=== PATIENT | male | born 1995 | race American Indian/Alaskan Native ===

== ENCOUNTER 2020-03-11 18:57 | Emergency (ER) | payer SELFPAY ==
[2020-03-11 19:18] VITALS: BP 136/78; PULSE 82; RESP 14; TEMP 36.9; O2SAT 98; BMI 31.9
[2020-03-11 20:48] VITALS: BP 141/89; PULSE 75; RESP 15; TEMP 36.7; O2SAT 97
[2020-03-11 21:47] LABS: Basophils % 0.5 %; Eosinophils # 0.2 10^3/uL (0.0-0.8); Eosinophils % 2.7 %; Hemoglobin 15.6 g/dL (11.7-16.6); Lymphocytes # 2.8 10^3/uL (0.8-4.8); Lymphocytes % 32.3 %; Mean Corpuscular HGB Conc 33.2 g/dL (30.0-36.0); Mean Corpuscular Hemoglobin 29.5 pg (28.0-34.0); Mean Platelet Volume 9.9 fL (7.4-10.4); Monocytes # 0.4 10^3/uL (0.2-0.9); Monocytes % 4.2 %; Neutrophils # 5.12 10^3/uL (1.8-7.7); Neutrophils % 60.1 %; Nucleated Red Blood Cells % 0 %; Platelet Count 249 10^3/cmm (130-400); Red Blood Count 5.28 10^6/uL (4.1-5.3); White Blood Count 8.5 10^3/uL (4.0-10.0)
--- NOTE | 2020-03-11 22:08 | CTR_ITS ---
PROCEDURE INFORMATION: Exam: CT Abdomen And Pelvis With Contrast Exam date and time: 03/11/2020 10:23 PM Age: 24 years old Clinical indication: Abdominal pain; Additional info: Hematemesis TECHNIQUE: Imaging protocol: Computed tomography of the abdomen and pelvis with intravenous contrast. Radiation optimization: All CT scans at this facility use at least one of these dose optimization techniques: automated exposure control; mA and/or kV adjustment per patient size (includes targeted exams where dose is matched to clinical indication); or iterative reconstruction. Contrast material: OMNI 300; Contrast volume: 95 ml; Contrast route: INTRAVENOUS (IV); COMPARISON: CR Pelvis AP 1 or 2 views* [id number] 07/18/2014 7:33 AM RADIATION DOSE METRICS: Total DLP (mGy-cm): 826.22 FINDINGS: Mediastinal space: There is an air-fluid level in the distal esophagus compatible with reflux. Liver: Unremarkable.No mass. Gallbladder and bile ducts: Normal. No calcified stones. No ductal dilation. Pancreas: Normal. No ductal dilation. Spleen: Normal. No splenomegaly. Adrenal glands: Normal. No mass. Kidneys and ureters: Normal. No hydronephrosis. Stomach and bowel: The wall of the greater curvature of the stomach is thickened compared to the lesser curvature. This may reflect lack of distention or gastritis. There is diffuse small bowel wall thickening, consistent with infectious, ischemic, or inflammatory enteritis. There is no evidence of intestinal perforation or obstruction. There is no evidence of colitis/diverticulitis. Appendix: A normal appendix is identified. Intraperitoneal space: Unremarkable. No free air. No significant fluid collection. Vasculature: Unremarkable.No abdominal aortic aneurysm. Lymph nodes: Unremarkable.No enlarged lymph nodes. Urinary bladder: Unremarkable as visualized. Reproductive: Unremarkable as visualized. Bones/joints: Unremarkable. No acute fracture. Soft tissues: There is a fat-containing umbilical hernia. CT/CT abdomen pelvis w con* [id number] IMPRESSION: There is diffuse small bowel wall thickening, consistent with infectious, ischemic, or inflammatory enteritis. There is also asymmetric gastric wall thickening that may reflect lack of distention or gastritis versus infiltrative process. There is an air-fluid level in the distal esophagus without wall thickening that may reflect reflux. Radiation Dose CTDIVOL = (mGy): DLP = 826.22 (mGy-cm)
[2020-03-11] MEDS: pantoprazole 40 mg SDV IVP (22:10)
[2020-03-11] MEDS: ondansetron 2 mg/ML SDV 2 mL 4 MG IVP (22:10)
[2020-03-11 22:19] LABS: Alanine Aminotransferase 39 U/L (0-41); Albumin Level 4.6 g/dL (3.5-5.2); Alkaline Phosphatase 92 IU/L (40-130); Anion Gap 14.7 (5-19); Aspartate Amino Transferase 27 U/L (0-40); Blood Urea Nitrogen 12 mg/dL (6-20); Calcium 9.5 mg/dL (8.5-10.5); Carbon Dioxide 28 mmol/L (22-29); Chloride 101 mmol/L (98-107); Creatinine Clr Calc Pharmacy 158.0084; Globulin 2.3 g/dL (1.3-4.6); Glomerular Filtration Rate 117.8 mL/min (90-130); Glucose 105 mg/dL (65-115); Osmolality Calculated 290 mOsm/kg (285-295); Potassium 3.7 mmol/L (3.5-5.1); Sodium 140 mmol/L (136-145); Total Bilirubin 0.7 mg/dL (0.15-1.2); Total Protein 6.9 g/dL (6.6-8.7)
--- NOTE | 2020-03-11 22:25 | ED_ITS ---
HPI - Nausea/Vomiting/Diarrhea General: Chief complaint: Nausea/Vomiting/Diarrhea Stated complaint: n/v bloody vomit Time Seen by Provider: 03/11/20 21:36 Source: patient and family Mode of arrival: ambulatory History of Present Illness: HPI Narrative: After dinner the patient went out to get the mail and while there he vomited a total of 3 times. The third time he said he felt different on when he shone some light on it he noticed that he had blood streaks in it. The first 2 times there was no blood in it. He also has epigastric abdominal pain. Because of the blood he was worried and came here for evaluation. He has a history of acid reflux, drank some alcohol last night. He does not take NSAIDs regularly. Does not drink caffeine. He denies dizziness currently but had some dizziness when he was vomiting. MD elicited complaint: nausea and vomiting Onset (ago): hour(s) (4) Description of vomiting: food contents and blood-streaked Associated nausea: Yes Associated abdominal pain: Yes Location of pain: Epigastric Pain consistency: constant Severity: moderate Quality: stabbing Exacerbating factors: none Relieving factors: none Associated symtoms: Reports nausea; Denies altered mental status, anxiety, bloating, change in vision, chest pain, cough, diaphoresis, decreased urine output, dizziness, dysuria, epistaxis, fatigue, fecal incontinence, fevers/chills, headache(s), anorexia, malaise, myalgias, numbness, palpitations, rash, short of breath, syncope, tenesmus, tinnitus or weakness Review of Systems General: Reports: 10 or more systems reviewed and unremarkable except in HPI and below Const: Denies: fatigue, malaise or diaphoresis Eyes: Denies: change in vision ENMT: Denies: tinnitus or epistaxis Card: Denies: chest pain, palpitations or syncope Resp: Denies: dyspnea, productive cough or non-productive cough GI: Reports: nausea; Denies: bloating or fecal incontinence : Denies: dysuria Musc: Denies: neck pain, back pain or extremity swelling Skin/Breast: Denies: rash, pruritus or erythema Neuro: Denies: headache(s) or dizziness Psych: Denies: anxiety Endo: Denies: polyuria, polydipsia or tired all the time Physical Exam Const: COMMON NORMALS: no acute distress, average body habitus, patient oriented x3, no limitations, healthy appearing, alert and well nourished EXAM LIMITATIONS: no altered mental status HENMT: COMMON NORMALS: normocephalic, atraumatic and moist oral mucous membranes HEAD & SCALP: normocephalic and atraumatic Neck/C-Spine: COMMON NORMALS: no meningeal signs and no JVD Resp: COMMON NORMALS: normal respiratory effort, No retractions, No use of accessory muscles, clear to auscultation bilaterally and percussion normal AU SCULTATION: clear to auscultation bilaterally PERCUSSION: percussion normal Cardio: COMMON NORMALS: no JVD, regular rate, regular rhythm, S1 normal heart sound present, S2 normal heart sound present, No gallops present (Cardio), No clicks present (Cardio), No murmurs present (Cardio), No rub (Cardio) and P eripheral pulses 2+ throughout RATE: regular rate RHYTHM: regular rhythm HEART SOUNDS: S1 normal heart sound present and S2 normal heart sound present PERIPHERAL PULSES: Peripheral pulses 2+ throughout GI: COMMON NORMALS: Normal to inspection, nondistended, normoactive bowel sounds present, Soft to palpation, No hepatosplenomegaly present, no masses and no bruits PALPATION: Yes Soft to palpation, Yes Tenderness to palpation present (GI) (epigastric), No Guarding due to palpation present (GI), Yes No hepatosplenomegaly present and No Rebound tenderness present Extremity: COMMON NORMALS: normal to inspection, full ROM, capillary refill normal, no calf tenderness and no pedal edema Neuro: COMMON NORMALS: patient oriented x3 SENSORIUM/ORIENTATION: Yes alert MENINGEAL SIGNS: Yes no meningeal signs Skin: COMMON NORMALS: no rashes or lesions noted, no wounds, turgor normal, no jaundice, no petechiae and no mottling GENERAL SKIN EXAM: no rashes or lesions noted and turgor normal Course Reevaluation(s): Reevaluation #1: Discussed his lab and imaging findings with him. Hemoglobin is normal, other labs unremarkable. CT scan however shows enteritis and signs of gastritis and esophagitis. I think the enteritis may have caused his vomiting together with the acid peptic disease. Since he had only one episode of bloody vomiting, vital signs are all stable here in the emergency department, no episode of vomiting since he has been in the emergency department and no laboratory concerning abnormalities, I think he is appropriate for outpatient therapy. We will discharge him home with a prescription for antibiotics, antiemetics, and PPI. He will be referred to surgeon for an upper GI endoscopy on an outpatient basis. Patient voiced understanding and is in agreement with the plan. Time: 23:48 Vital Signs: Vital signs: Vital Signs Temperature 98.1 F 03/11/20 20:48 Pulse Rate 80 03/12/20 00:37 Respiratory Rate 16 03/12/20 00:37 Blood Pressure 106/54 03/12/20 00:37 Pulse Oximetry 96 03/12/20 00:37 MDM - Nausea/Vomiting/Diarrhea MDM Narrative: Medical decision making narrative: 24-year-old male with acute enteritis which likely related him to have 3 episodes of vomiting this evening after eating. A final episode of vomiting had some blood tinge in it. In the emergency department he had no repeat episodes of vomiting, and lab evaluation was unremarkable including a hemoglobin of 15.6. He was given a dose of intravenous Zosyn for the enteritis here and discharged home with a prescription for ciprofloxacin and Flagyl. He was also given a prescription for antibiotics. He will be referred to the surgeon for upper GI endoscopy. Medical Records: Attestation: I reviewed the patient's medical records. Lab Data: Attestation: I reviewed the patient's lab results. Labs: Lab Results 03/11/20 03/11/20 03/11/20 Range/Units 21:40 21:40 21:40 WBC 8.5 (4.0-10.0) 10^3/ uL RBC 5.28 (4.1-5.3) 10^6/u L Hgb 15.6 (11.7-16.6) g/dL Hct 47.0 (42.0-52.0) % MCV 89.0 (80-94) fL MCH 29.5 (28.0-34.0) pg MCHC 33.2 (30.0-36.0) g/dL RDW 12.0 L (12.1-15.1) % Plt Count 249 (130-400) 10^3/c mm MPV 9.9 (7.4-10.4) fL Neut % (Auto) 60.1 % Lymph % (Auto) 32.3 % Tate % (Auto) 4.2 % Eos % (Auto) 2.7 % Baso % (Auto) 0.5 % Neut # (Auto) 5.12 (1.8-7.7) 10^3/u L Lymph # (Auto) 2.8 (0.8-4.8) 10^3/u L Tate # (Auto) 0.4 (0.2-0.9) 10^3/u L Eos # (Auto) 0.2 (0.0-0.8) 10^3/u L Baso # (Auto) 0.0 (0.0-0.1) 10^3/u L Nucleated RBC % (a uto) 0 % Nucleated RBCs # 0.0 /100WBC PT 12.80 (12.1-14.9) SECO NDS INR 0.94 (0.8-1.2) Sodium 140 (136-145) mmol/L Potassium 3.7 (3.5-5.1) mmol/L Chloride 101 (98-107) mmol/L Carbon Dioxide 28 (22-29) mmol/L Anion Gap 14.7 (5-19) BUN 12 (6-20) mg/dL Creatinine 0.8 (0.7-1.2) mg/dL GFR Calculation 117.8 (90-130) mL/min Glucose 105 (65-115) mg/dL Calculated Osmolal ity 290 (285-295) mOsm/k g Calcium 9.5 (8.5-10.5) mg/dL Total Bilirubin 0.7 (0.15-1.2) mg/dL AST 27 (0-40) U/L ALT 39 (0-41) U/L Alkaline Phosphata se 92 (40-130) IU/L Total Protein 6.9 (6.6-8.7) g/dL Albumin 4.6 (3.5-5.2) g/dL Globulin 2.3 (1.3-4.6) g/dL Lipase (13-60) U/L 03/11/20 Range/Units 21:40 WBC (4.0-10.0) 10^3/ uL RBC (4.1-5.3) 10^6/u L Hgb (11.7-16.6) g/dL Hct (42.0-52.0) % MCV (80-94) fL MCH (28.0-34.0) pg MCHC (30.0-36.0) g/dL RDW (12.1-15.1) % Plt Count (130-400) 10^3/c mm MPV (7.4-10.4) fL Neut % (Auto) % Lymph % (Auto) % Tate % (Auto) % Eos % (Auto) % Baso % (Auto) % Neut # (Auto) (1.8-7.7) 10^3/u L Lymph # (Auto) (0.8-4.8) 10^3/u L Tate # (Auto) (0.2-0.9) 10^3/u L Eos # (Auto) (0.0-0.8) 10^3/u L Baso # (Auto) (0.0-0.1) 10^3/u L Nucleated RBC % (a uto) % Nucleated RBCs # /100WBC PT (12.1-14.9) SECO NDS INR (0.8-1.2) Sodium (136-145) mmol/L Potassium (3.5-5.1) mmol/L Chloride (98-107) mmol/L Carbon Dioxide (22-29) mmol/L Anion Gap (5-19) BUN (6-20) mg/dL Creatinine (0.7-1.2) mg/dL GFR Calculation (90-130) mL/min Glucose (65-115) mg/dL Calculated Osmolal ity (285-295) mOsm/k g Calcium (8.5-10.5) mg/dL Total Bilirubin (0.15-1.2) mg/dL AST (0-40) U/L ALT (0-41) U/L Alkaline Phosphata se (40-130) IU/L Total Protein (6.6-8.7) g/dL Albumin (3.5-5.2) g/dL Globulin (1.3-4.6) g/dL Lipase 49 (13-60) U/L Imaging Data^: CT Abd/Pel: Attestation: I personally reviewed and interpreted this imaging study as follows: Radiologist's impression: [facility] [place] [address] CT Scan Report Signed Patient: Conor Baxter #: [id number] : 1995Acct#:[id number] Age/Sex: 24 / MADM Date: 03/11/20 Loc: ERRoom/Bed: Attending Dr: Ordering Provider/Ordering MD: Abhijeet Montenegro MD, [facility] [place] Date of Service: 03/11/20 Procedure(s): CT abdomen pelvis w con* [id number] Accession Number(s): [id number] Report Number: [id number] PROCEDURE INFORMATION: Exam: CT Abdomen And Pelvis With Contrast Exam date and time: 03/11/2020 10:23 PM Age: 24 years old Clinical indication: Abdominal pain; Additional info: Hematemesis TECHNIQUE: Imaging protocol: Computed tomography of the abdomen and pelvis with intravenous contrast. Radiation optimization: All CT scans at this facility use at least one of these dose optimization techniques: automated exposure control; mA and/or kV adjustment per patient size (includes targeted exams where dose is matched to clinical indication); or iterative reconstruction. Contrast material: OMNI 300; Contrast volume: 95 ml; Contrast route: INTRAVENOUS (IV); COMPARISON: CR Pelvis AP 1 or 2 views* [id number] 07/18/2014 7:33 AM RADIATION DOSE METRICS: Total DLP (mGy-cm): 826.22 FINDINGS: Mediastinal space: There is an air-fluid level in the distal esophagus compatible with reflux. Liver: Unremarkable.No mass. Gallbladder and bile ducts: Normal. No calcified stones. No ductal dilation. Pancreas: Normal. No ductal dilation. Spleen: Normal. No splenomegaly. Adrenal glands: Normal. No mass. Kidneys and ureters: Normal. No hydronephrosis. Stomach and bowel: The wall of the greater curvature of the stomach is thickened compared to the lesser curvature. This may reflect lack of distention or gastritis. There is diffuse small bowel wall thickening, consistent with infectious, ischemic, or inflammatory enteritis. There is no evidence of intestinal perforation or obstruction. There is no evidence of colitis/diverticulitis. Appendix: A normal appendix is identified. Intraperitoneal space: Unremarkable. No free air. No significant fluid collection. Vasculature: Unremarkable.No abdominal aortic aneurysm. Lymph nodes: Unremarkable.No enlarged lymph nodes. Urinary bladder: Unremarkable as visualized. Reproductive: Unremarkable as visualized. Bones/joints: Unremarkable. No acute fracture. Soft tissues: There is a fat-containing umbilical hernia. CT/CT abdomen pelvis w con* [id number] IMPRESSION: There is diffuse small bowel wall thickening, consistent with infectious, ischemic, or inflammatory enteritis. There is also asymmetric gastric wall thickening that may reflect lack of distention or gastritis versus infiltrative process. There is an air-fluid level in the distal esophagus without wall thickening that may reflect reflux. Radiation Dose CTDIVOL = (mGy): DLP = 826.22 (mGy-cm) Dictated By:Maria De Jesus Yeager Signed By:Manpreet Yeagerigned Date/Time:03/11/202303 DD/ 03 Discharge Plan Discharge Patient Disposition: Home Clinical Impression: Enteritis Gastritis Qualifiers: Gastritis type: unspecified gastritis Chronicity: acute Gastritis bleeding: with bleeding Qualified Code(s): K29.01 - Acute gastritis with bleeding Condition: Stable Prescriptions: New Flagyl 500 mg tablet 500 mg PO TID Qty: 21 RF: 0 ciprofloxacin HCl 500 mg tablet 500 mg PO BID Qty: 14 RF: 0 omeprazole 40 mg capsule,delayed release(DR/EC) 40 mg PO DAILY Qty: 30 RF: 0 Continued Antacid See Rx Instructions .ROUTE .COMPLEX RF: 0 ibuprofen 200 mg Tablet 800 mg PO PRN RF: 0 echinacea 1 tab PO PRN RF: 0 Discharge Orders: Discharge Order (Routine); Ordered 03/11/20 Ordered By: Abhijeet Montenegro Discharge Diet: As Directed Discharge Activity: Increase activity as tolerated Patient Instructions: Gastritis (ED), Gastroenteritis (ED) Activity Restrictions/Additional Instructions: Return for any new or worsening symptoms. You will be contacted by case management to schedule an appointment with the surgeon for an endoscopy to see if they can find out where you are bleeding from. Take the medications as prescribed. Avoid alcoholic beverages, caffeinated beverages, spicy foods, NSAIDs. Follow- up with your primary care provider within 3 days. Coding Level of Care Code ED [employer] for [employer] Fwd Exam Comprehensive
[2020-03-11] MEDS: iohexol 300 mg/mL 100 mL Btl IV (22:48)
[2020-03-11 23:07] LABS: INR 0.94 (0.8-1.2)
[2020-03-11 23:15] LABS: Lipase 49 U/L (13-60)
[2020-03-11 23:29] VITALS: BP 118/76; PULSE 72; RESP 16; O2SAT 99
[2020-03-11] MEDS: piperacillin-tazobactam 3.375 GM in sodium chloride 0.9% (plus) 50 ML IV (23:49)
[2020-03-11] MEDS: sodium chloride 0.9% 1,000 ML 999 ML IV (23:49)
[2020-03-12 00:37] VITALS: BP 106/54; PULSE 80; RESP 16; O2SAT 96
--- NOTE | 2020-03-12 11:33 | DCPLANNER ---
medical office manager had message to schedule a follow up appointment for patient with general surgery. medical office manager emailed Jeannie at [facility] patients information. Patients information will be printed and reviewed. Clinic will call patient with appointment information.
--- NOTE | 2020-03-20 09:57 | DCPLANNER ---
Patient has a follow up appointment scheduled for Friday, March 27, [address] at 3:[address] Gamez. Clinic will call patient with appointment information.
--- NOTE | 2020-04-05 14:51 | DCPLANNER ---
Patient had a follow up appointment scheduled for 03.27.20 with [facility] [place] General Surgery - patient did attend appointment.
== END 2020-03-12 00:38 | disposition home or self-care (01) ==
PROVIDERS: Nurse Practitioner Family; Emergency Provider Family Medicine
DX: K52.9 Noninfective gastroenteritis and colitis, unspecified (principal)
CPT/HCPCS: 12345; 74177; 80053; 83690; 85025; 85610; 96365; 96375; 99283; C9113; J2405; J2543; J7030; Q9967

== ENCOUNTER → 2020-04-05 12:43 | Outpatient (BNVA) | payer SELFPAY | PROVIDERS: Visit Provider Surgery | DX: K92.0 Hematemesis (principal) | CPT/HCPCS: 87635 ==

== ENCOUNTER 2020-04-10 08:45 | Day surgery (SDC) | payer SELFPAY ==
--- NOTE | 2020-04-10 09:54 | W.PM.OPSUD ---
Surgery/Procedure H&P Update DATE OF PROCEDURE: April 10, 2020 DATE H&P PERFORMED: 03/27/20 H&P UPDATE INFORMATION: I have reviewed H&P completed within last 30 days, I have examined patient prior to procedure and No changes to prior documentation PREOP DIAGNOSIS: Hematemesis PRIMARY INDICATION FOR PROCEDURE: The same PLANNED PROCEDURE: Operation Date: 04/10/20 10:30 Proposed Procedures p EGD(Not Applicable) - Anton Gamez MD
[2020-04-10 09:55] VITALS: BMI 32.8
[2020-04-10] MEDS: sodium chloride 0.9% 1,000 ML 30 ML IV (10:01)
--- NOTE | 2020-04-10 10:26 | ANES.PREANE2 ---
Pre-Anesthetic Assessment Pre-Anesthetic Assessment: Height/Weight: Height 1.7 m Weight 95.254 kg Preop Diagnosis: Hematemesis Proposed Procedure: Operation Date: 04/10/20 10:30 Proposed Procedures p EGD(Not Applicable) - Anton Gamez MD Familial anesthetic complications: None Was Beta Brent taken within 24 hours: N/A Last intake: Intake Last Liquid Date 04/09/20 Last Liquid Time 21:30 Last Solid Date 04/09/20 Last Solid Time 19:30 Social: Social History: Tobacco Exam: Pre-Anes Outpt Exam: alert, oriented x 3, clear to auscultation bilaterally and regular rate & rhythm Airway: Cervical ROM: WNL MP: 4 Dentition: Other (missing teeth) GI: GI: GERD Comments: hematemesis Anesthetic Plan: ASA status: 1 Anesthesia: MAC Risk of > 500 ml blood loss (7ml/kg in children): No Meds/Allergies Current Medications: Current Medications Generic Name Dose Route Start Last Admin Trade Name Freq PRN Reason Stop Dose Admin Sodium Chloride 1,000 mls @ 30 ml s/hr 04/10/20 09:45 04/10/20 10:01 Sodium Chloride 0.9% IV 30 mls/hr .Q24H KARELY Administration PFSH Anesthesia PFSH: Medical History GERD (gastroesophageal reflux disease) GI bleed Family History Denies family history of Anesthesia complication Bleeding disorder Social History Smoking and tobacco status: never smoked Data Anesthesia Cardiac Studies: No Data to Display
[2020-04-10 11:21] VITALS: BP 135/84; PULSE 89; RESP 18; TEMP 36.1; O2SAT 99
[2020-04-10 11:33] VITALS: BP 136/88; PULSE 76; RESP 18; O2SAT 100
--- NOTE | 2020-04-10 12:00 | ANE.PACU2 ---
Inpatient post-anesthesia follow up: Airway intact: Yes Vital signs: Temperature 97.0 F Pulse Rate 76 Respiratory Rate 18 Blood Pressure 136/88 Pulse Oximetry 100 Oxygen Delivery Me thod Room Air Oxygen Flow Rate Fraction of Inspir ed Oxygen Hydration adequate: Yes Nausea and vomiting: No Pain level: 1 Mental status: Baseline
[2020-04-11 05:53] LABS: H. Pylori / CLO Test Negative
== END 2020-04-10 11:56 | disposition home or self-care (01) ==
PROVIDERS: Visit Provider Surgery
PROC: 0DJ08ZZ Inspection of Upper Intestinal Tract, Via Natural or Artificial Opening Endoscopic (ICD-10-PCS; CPT 43235; principal; 2020-04-10 10:30)
DX: K92.0 Hematemesis (principal); K29.70 Gastritis, unspecified, without bleeding; K21.9 Gastro-esophageal reflux disease without esophagitis
CPT/HCPCS: 12345; 43239; 87077; J2704; J7030

== ENCOUNTER → 2020-07-01 10:39 | Outpatient (BNVA) | payer OTHER, SELFPAY | PROVIDERS: Visit Provider Emergency Medicine | DX: Z20.822 Contact with and (suspected) exposure to COVID-19 (principal) | CPT/HCPCS: 87635 ==

== ENCOUNTER 2024-01-17 06:12 | Emergency (ER) | payer SELFPAY ==
[2024-01-17 06:17] VITALS: BP 143/96; PULSE 95; RESP 20; TEMP 36.6; O2SAT 97; BMI 31.0
--- NOTE | 2024-01-17 06:17 | CTR_ITS ---
PROCEDURE INFORMATION: Exam: CT Abdomen And Pelvis With Contrast Exam date and time: 01/17/2024 7:36 AM Age: 28 years old Clinical indication: Nausea and vomiting; Additional info: Abd pain TECHNIQUE: Imaging protocol: Computed tomography of the abdomen and pelvis with contrast. Radiation optimization: All CT scans at this facility use at least one of these dose optimization techniques: automated exposure control; mA and/or kV adjustment per patient size (includes targeted exams where dose is matched to clinical indication); or iterative reconstruction. Contrast material: [id number]; Contrast volume: 100 ml; Contrast route: INTRAVENOUS (IV); COMPARISON: CT abdomen pelvis w con* [id number] 03/11/2020 10:44 PM RADIATION DOSE METRICS: Total DLP (mGy-cm): 707 FINDINGS: Liver: Normal. No mass. Gallbladder and biliary ducts: Normal. No calcified stones. No ductal dilation. Pancreas: Normal. No ductal dilation. Spleen: Normal. No splenomegaly. Adrenal glands: Normal. No mass. Kidneys and ureters: Normal. No hydronephrosis. Stomach and bowel: Unremarkable. No obstruction. No mucosal thickening. Appendix: No evidence of appendicitis. Intraperitoneal space: Unremarkable. No free air. No significant fluid collection. Vasculature: Unremarkable. No abdominal aortic aneurysm. Lymph nodes: Unremarkable. No enlarged lymph nodes. Urinary bladder: Unremarkable as visualized. Reproductive: Unremarkable as visualized. Bones/joints: Unremarkable. No acute fracture. Soft tissues: Unremarkable. CT/CT abdomen pelvis w con* [id number] IMPRESSION: No acute findings.
--- NOTE | 2024-01-17 06:28 | ED_ITS ---
HPI - Nausea/Vomiting/Diarrhea 2 General: Chief complaint: Nausea/Vomiting/Diarrhea Stated complaint: vomitting blood, n, joint aches Time Seen by Provider: 01/17/24 06:13 History of Present Illness: 28-year-old male presents emergency room complaining of streaks of blood in emesis this morning and several episodes of emesis this morning after he woke up last while at work he had history show fluid appeared to be bright red blood. Prior to that he had some brown discolored emesis possibly consistent with this. He had eaten last night. He did admit to having several alcoholic beverages last night. He has previously had difficulty with reflux. He was on omeprazole but stopped taking it due to cough. No abdominal pain at this time. No history of GI bleed in the past. He has not had blood transfusions due to upper GI bleed. No history of hospitalization for pancreatitis. Associated nausea: Yes Associated symtoms: Reports nausea; Denies chest pain or dysuria Related Data Previous Rx's Medication Instructions Recorded pantoprazole 40 mg tablet,delayed 40 mg PO BID 10 days #40 tabs 01/17/24 release sucralfate 1 gram tablet 1 g PO Q6H PRN stomach upset 4 01/17/24 weeks #112 tabs Allergies Allergy/AdvReac Type Severity Reaction Status Date / Time No Known Allergies Allergy Verified 12/01/22 09:11 Review of Systems 2 Const: Denies: fever(s) or chills Card: Denies: chest pain Resp: Denies: dyspnea GI: Reports: nausea, vomiting, hematemesis and coffee ground emesis; Denies: abdominal pain : Denies: dysuria, urinary frequency or urinary urgency Musc: Denies: neck pain or back pain Skin/Breast: Denies: rash PFSH ED 2 PFSH: Medical History GI bleed GERD (gastroesophageal reflux disease) Family History Denies family history of Anesthesia complication Bleeding disorder Social History Smoking and tobacco/nicotine status: never used tobacco/nicotine Physical Exam 2 Const: COMMON NORMALS: no acute distress GENERAL APPEARANCE: cooperative and comfortable ORIENTATION/CONSCIOUSNESS: Yes awake, Yes oriented to person, Yes oriented to place and Yes oriented to time HENMT: COMMON NORMALS: normocephalic, atraumatic and hearing grossly normal bilaterally HEAD & SCALP: normocephalic and atraumatic Resp: COMMON NORMALS: normal respiratory effort, No retractions, No use of accessory muscles and clear to auscultation bilaterally AUSCULTATION: clear to auscultation bilaterally Cardio: COMMON NORMALS: regular rate, regular rhythm and No murmurs present (Cardio) RATE: regular rate RHYTHM: regular rhythm GI: COMMON NORMALS: Soft to palpation and No hepatosplenomegaly present A USCULTATION: Yes normoactive bowel sounds PALPATION: Yes Soft to palpation, No Tenderness to palpation present (GI), No Guarding due to palpation present (GI) and Yes No hepatosplenomegaly present Extremity: COMMON NORMALS: normal to inspection, capillary refill normal, no clubbing, cyanosis or edema, no calf tenderness and no pedal edema Neuro: SENSORIUM/ORIENTATION: Yes oriented to person, Yes oriented to place and Yes oriented to time Skin: COMMON NORMALS: no rashes or lesions noted GENERAL SKIN EXAM: no rashes or lesions noted Course 2 Vital Signs: Vital signs: Vital Signs Temperature 98 F 01/17/24 06:17 Pulse Rate 78 01/17/24 08:33 Respiratory Rate 18 01/17/24 06:43 Blood Pressure 126/80 01/17/24 08:33 Pulse Oximetry 97 01/17/24 08:33 Oxygen Delivery Me thod Room Air 01/17/24 08:30 MDM - Nausea/Vomiting/Diarrhea Medical Decision Making Labs and imaging reviewed no signs of active bleeding on his labs or on CT. Will discharge patient home on Protonix 40 twice daily for 10 days and 40 daily can use Carafate 1 g every 6 hours as needed. Patient given information on diet advised to avoid alcohol. Follow-up with his primary care doctor return if has further problems Medical Records I reviewed the patient's medical records. Lab Data I reviewed the patient's lab results. 01/17/24 06:36 01/17/24 06:36 Radiology Impressions Abdomen/Pelvis CT 01/17/24 06:17 IMPRESSION: No acute findings. Laboratory Results WBC 10.97 10^3/uL (3.29-11.43) 01/17/24 06:36 RBC 5.15 10^6/uL (3.85-5.65) 01/17/24 06:36 Hgb 15.40 g/dL (11.27-16.99) 01/17/24 06:36 Hct 46.3 % (37-53) 01/17/24 06:36 MCV 89.9 fl (82-101) 01/17/24 06:36 MCH 29.9 pg (27-33) 01/17/24 06:36 MCHC 33.3 g/dL (30-55) 01/17/24 06:36 RDW 12.1 % (12.1-15.1) 01/17/24 06:36 Plt Count 225 10^3/cmm (157-399) 01/17/24 06:36 MPV 9.5 fL (7.4-10.4) 01/17/24 06:36 Neut % (Auto) 73.2 % 01/17/24 06:36 Lymph % (Auto) 15.4 % 01/17/24 06:36 [place] % (Auto) 4.4 % 01/17/24 06:36 Eos % (Auto) 6.1 % 01/17/24 06:36 Baso % (Auto) 0.5 % 01/17/24 06:36 Neut # (Auto) 8.03 10^3/uL (1.8-7.7) H 01/17/24 06:36 Lymph # (Auto) 1.7 10^3/uL (0.8-4.8) 01/17/24 06:36 [place] # (Auto) 0.5 10^3/uL (0.2-0.9) 01/17/24 06:36 Eos # (Auto) 0.7 10^3/uL (0.0-0.8) 01/17/24 06:36 Baso # (Auto) 0.1 10^3/uL (0.0-0.1) 01/17/24 06:36 Nucleated RBC % (auto) 0 % 01/17/24 06:36 Nucleated RBCs # 0.0 /100WBC 01/17/24 06:36 Sodium 141 mmol/L (136-145) 01/17/24 06:36 Potassium 3.6 mmol/L (3.5-5.1) 01/17/24 06:36 Chloride 104 mmol/L (98-107) 01/17/24 06:36 Carbon Dioxide 26 mmol/L (22-29) 01/17/24 06:36 Anion Gap 14.6 (5-19) 01/17/24 06:36 BUN 9 mg/dL (6-20) 01/17/24 06:36 Creatinine 0.8 mg/dL (0.7-1.2) 01/17/24 06:36 GFR Calculation 114.3 mL/min (90-130) 01/17/24 06:36 Glucose 124 mg/dL (65-115) H 01/17/24 06:36 Calculated Osmolality 292 mOsm/kg (285-295) 01/17/24 06:36 Calcium 8.5 mg/dL (8.5-10.5) 01/17/24 06:36 Total Bilirubin 0.4 mg/dL (0.15-1.2) 01/17/24 06:36 AST 25 U/L (0-40) 01/17/24 06:36 ALT 48 U/L (0-41) H 01/17/24 06:36 Alkaline Phosphatase 81 U/L (40-130) 01/17/24 06:36 Total Protein 6.3 g/dL (6.6-8.7) L 01/17/24 06:36 Albumin 4.0 g/dL (3.5-5.2) 01/17/24 06:36 Globulin 2.3 g/dL (1.3-4.6) 01/17/24 06:36 Lipase 54 U/L (13-60) 01/17/24 06:36 All radiology interpretation(s) finalized by discharge Discharge Plan Discharge Patient Disposition: Home Clinical Impression: GERD with esophagitis Condition: Stable Prescriptions: New pantoprazole 40 mg tablet,delayed release (DR/EC) 40 mg PO BID 10 Days Qty: 40 0RF sucralfate 1 gram tablet 1 g PO Q6H PRN (Reason: stomach upset) 28 Days Qty: 112 0RF Discharge Orders: Discharge ED (Routine); Ordered 01/17/24 Ordered By: Holden Zamora Discharge Diet: As Directed Discharge Activity: Increase activity as tolerated Patient Instructions: Diet for Stomach Ulcers and Gastritis (ED), GERD (Gastroesophageal Reflux Disease) (ED), Opioid Safety, Pain Management Activity Restrictions/Additional Instructions: Thank you for choosing [facility] for your healthcare needs today. It is very important that you follow up as instructed or that you return to the Emergency Department should you have concerns or if your condition changes or worsens in any way. You are seen today with complaints of vomiting. Your hemoglobin and laboratory studies were normal. CT did not show any evidence of active bleeding. Recommend avoiding alcohol. Sharp diet. Given diet recommendations in your discharge instructions as well. Start pantoprazole 1 tablet twice a day for 10 days then once daily. You can also use Carafate 1 g tablet every 6 hours as needed. Coding Level of Care Code ED [employer] Hel[employer] for Truman Lazcano
--- NOTE | 2024-01-17 06:39 | ECG_ITS ---
[facility] Test Date: 2024-01-17 Pat Name: Ash Baxter Department: Room: Gender: Male Client Services Director: : 1995 Requested By: Holden Fulton Order Number: [id number] Nancy MD: Stanley Mahoney M.D. Measurements Intervals Roland Rate: 85 P: 47 CO: 160 QRS: 65 QRSD: 93 T: 48 QT: 334 QTc: 398 Interpretive Statements SINUS RHYTHM No previous ECG available for comparison Electronically Signed On 01-17-2024 23:27:42 CDT by Stanley Mahoney M.D. [email or web address]
[2024-01-17 06:43] VITALS: BP 143/96; PULSE 88; RESP 18; O2SAT 95
[2024-01-17 06:46] LABS: Basophils # 0.1 10^3/uL (0.0-0.1); Basophils % 0.5 %; Eosinophils # 0.7 10^3/uL (0.0-0.8); Eosinophils % 6.1 %; Hematocrit 46.3 % (37-53); Lymphocytes # 1.7 10^3/uL (0.8-4.8); Lymphocytes % 15.4 %; Mean Corpuscular HGB Conc 33.3 g/dL (30-55); Mean Corpuscular Hemoglobin 29.9 pg (27-33); Mean Corpuscular Volume 89.9 fl (82-101); Mean Platelet Volume 9.5 fL (7.4-10.4); Monocytes # 0.5 10^3/uL (0.2-0.9); Monocytes % 4.4 %; Neutrophils # 8.03 10^3/uL (1.8-7.7); Neutrophils % 73.2 %; Nucleated Red Blood Cells % 0 %; Platelet Count 225 10^3/cmm (157-399); Red Blood Count 5.15 10^6/uL (3.85-5.65); Red Cell Distribution Width 12.1 % (12.1-15.1); White Blood Count 10.97 10^3/uL (3.29-11.43)
[2024-01-17 07:08] LABS: Alanine Aminotransferase 48 U/L (0-41); Alkaline Phosphatase 81 U/L (40-130); Anion Gap 14.6 (5-19); Aspartate Amino Transferase 25 U/L (0-40); Blood Urea Nitrogen 9 mg/dL (6-20); Calcium 8.5 mg/dL (8.5-10.5); Carbon Dioxide 26 mmol/L (22-29); Chloride 104 mmol/L (98-107); Creatinine Clr Calc Pharmacy 145.6574; Globulin 2.3 g/dL (1.3-4.6); Glomerular Filtration Rate 114.3 mL/min (90-130); Glucose 124 mg/dL (65-115); Lipase 54 U/L (13-60); Osmolality Calculated 292 mOsm/kg (285-295); Potassium 3.6 mmol/L (3.5-5.1); Sodium 141 mmol/L (136-145); Total Bilirubin 0.4 mg/dL (0.15-1.2); Total Protein 6.3 g/dL (6.6-8.7)
[2024-01-17] MEDS: sodium chloride 0.9% 1,000 ML 999 ML IV (07:08)
[2024-01-17] MEDS: ondansetron 2 mg/ML SDV 2 mL 4 MG IVP (07:09)
[2024-01-17] MEDS: pantoprazole 40 mg SDV 80 MG IVP (07:15)
[2024-01-17] MEDS: lidocaine 2% viscous 15 ML, aluminum-mag hydrox-simethicon 30 ML, sucralfate oral liq 1 GM PO (07:21)
[2024-01-17 07:30] VITALS: PULSE 87; O2SAT 98
[2024-01-17] MEDS: iohexol 350 mg/mL 500 mL Btl (per mL) IV (07:48)
[2024-01-17 08:30] VITALS: BP 126/80; PULSE 78; O2SAT 97
[2024-01-17 08:33] VITALS: BP 126/80; PULSE 78; O2SAT 97
== END 2024-01-17 09:50 | disposition home or self-care (01) ==
PROVIDERS: Emergency Provider Family Medicine
DX: K21.00 Gastro-esophageal reflux disease with esophagitis, without bleeding (principal)
CPT/HCPCS: 74177; 80053; 83690; 85025; 93005; 96374; 96375; 99285; J2405; J2470; J7030